=== PATIENT | female | born 1965 | race Caucasian/White ===

== ENCOUNTER 2017-08-11 10:43 | Day surgery (SDC) | payer OTHER ==
[~2017-08-11] VITALS: Ht 162.6 cm; Wt 77.0 kg
[~2017-08-11 10:43] MED LIST: AMLODIPINE BESY10 MG PO; FISH OIL 1,4001 EACH; FLAXSEED1000 MG PO; MULTI VITAMIN1 EACH PO; TENORMIN50 MG PO; TURMERIC500 M2 PO; VITAMIN E400 UNIT PO; XANAX0.25 MG PO; ZESTRIL40 MG PO
--- NOTE | 2017-08-11 12:24 | NUR ---
08/11/17 Mikki4 Britta Cerna 1219-PATIENT ARRIVED TO PACU ON 3L NC O2 SAT 100% PATIENT LAYING PRONE. DRESSING CDI TO BACK. AROUSES TO VERBAL STIMULI SLEEPING.
[2017-08-25] MEDS ORDERED: ACETAMINOPHEN-1 EACH PO (14:16)
== END 2017-08-11 13:25 | disposition home or self-care (01) ==
LOC: OPS 10:43 → DS 10:43 → OPS 12:00 → DS 12:00 → OPS 13:25
PROVIDERS: Specialist
PROC: 079T3ZX Drainage of Bone Marrow, Percutaneous Approach, Diagnostic (ICD-10-PCS; 2017-08-11)
PROC: 07DR3ZX Extraction of Iliac Bone Marrow, Percutaneous Approach, Diagnostic (ICD-10-PCS; principal; 2017-08-11 12:00)
DX: C91.10 Chronic lymphocytic leukemia of B-cell type not having achieved remission (principal); M54.12 Radiculopathy, cervical region; I10 Essential (primary) hypertension; F41.9 Anxiety disorder, unspecified; Z98.890 Other specified postprocedural states; Z88.8 Allergy status to other drugs, medicaments and biological substances
CPT/HCPCS: 80053; 82232; 83615; 85025; 99152; 99153; J2250; J3010; J7120

== ENCOUNTER 2017-08-17 07:43 | Day surgery (SDC) | payer OTHER ==
[~2017-08-17] VITALS: Ht 162.6 cm; Wt 77.0 kg
--- NOTE | 2017-08-17 09:11 | NUR ---
08/17/17 0911 Jazmin Lopez [id number] PT ARRIVED IN PACU SLEEPY. ABD SOFT AND PASSING FLATUS.
--- NOTE | 2017-08-17 09:56 | NUR ---
ICED WATER GIVEN. CALL LIGHT W/IN REACH.
--- NOTE | 2017-08-17 12:15 | NUR ---
PATIENT CALLING HER FRIEND FOR A RIDE. DC INSTRUCTIONS GIVEN. PT DRESSING SELF AFTER SITTING ON THE EDGE OF THE BED WITHOUT ANY ISSUES.
--- NOTE | 2017-08-17 18:17 | OR ---
[facility] [address], [place] [address] Signed DATE OF OPERATION: 08/17/2017 SURGEON: Tam Mathews MD PREOPERATIVE DIAGNOSIS: Screening. POSTOPERATIVE DIAGNOSES: 1. A 10 mm pedunculated polyp at 20 cm. 2. A 5 mm polyps at 1823 hours and 25 cm. 3. Minimal sigmoid diverticulosis. 4. Minimal internal and external hemorrhoids. PROCEDURE: Colonoscopy with snare polypectomy at 20 cm and hot biopsies. ESTIMATED BLOOD LOSS: None. INDICATIONS: Dalia is a 52-year-old female, asked to see me for her initial screening colonoscopy. She has no lower GI complaints. There is no family history of colon cancer or polyps. However, she has been using marijuana and alprazolam on a daily basis. I think mainly for stress and anxiety. Consequently, we had a long discussion regarding Versed and fentanyl versus an anesthesia provider. We also gave her a pamphlet in the office on colonoscopy. We looked at that together. She understands the nature of the test along with its risks including, but not limited to gas, bloating, crampy abdominal pain, bleeding, perforation, requiring surgery, and missed diagnosis. We also reviewed the written instructions for the bowel prep. She had expressed understanding and wished to proceed. PROCEDURE NOTE: Dalia was taken into our endoscopy suite and placed in the left lateral decubitus position. She had taken her citalopram this morning with a sip of water and we still used 13 mg of Versed and 200 mcg of fentanyl for the procedure. She was still awake through much of the procedure. Fortunately, she is fairly easy to pass the colonoscope. Nevertheless, she should consider a propofol infusion on her next colonoscopy. Once she was sedated, a digital rectal exam was performed and she has some small external hemorrhoids. She has good sphincter tone. The adult colonoscope was then introduced and advanced all around into the cecum under direct visualization of camera. Her prep Electronically Signed By: TAM MATHEWS MD 08/17/17 1817 PATIENT NAME: DALIA PRINCE OPERATIVE REPORT DATE OF : 65 REPORT #: [id number] PHYSICIAN: TAM MATHEWS MD PCP: KRYSTAL HOLBROOK REPORT IS CONFIDENTIAL AND NOT TO BE RELEASED WITHOUT AUTHORIZATION [facility] [address], [place] [address] Signed was good. The scope was then slowly withdrawn. She does have sigmoid diverticulosis. They were minimal to moderate in size, minimal to moderate in number, and scattered about. In addition, she had a 10 mm pedunculated polyp at 20 cm. We took it off in 2 bites with our snare and we captured both bites of the polyp and they were sent separately. Also, she had several smaller polyps in the area, which we removed with the help of hot biopsy forceps. Down in the rectum, the scope was then retroflexed and she does have some small internal hemorrhoids. After this, the gas was suctioned out. The colonoscope removed. Dalia tolerated the procedure quite well. RECOMMENDATIONS: I will see Dalia back in my office in 7 to 14 days to review her results. Tam Mathews MD ALB/MODL /[id number] cc: JUVENAL Valentin Copies: KRYSTAL HOLBROOK ~ Electronically Signed By: TAM MATHEWS MD 08/17/17 1817 PATIENT NAME: DALIA PRINCE OPERATIVE REPORT DATE OF : 65 REPORT #: [id number] PHYSICIAN: TAM MATHEWS MD PCP: KRYSTAL HOLBROOK REPORT IS CONFIDENTIAL AND NOT TO BE RELEASED WITHOUT AUTHORIZATION
[2017-08-25] MEDS ORDERED: ACETAMINOPHEN-1 EACH PO (14:16)
== END 2017-08-17 12:25 | disposition home or self-care (01) ==
LOC: DS 07:43 → OPS 07:43 → DS 09:00 → OPS 09:00
PROVIDERS: Colon & Rectal Surgery
PROC: 0DBE8ZX Excision of Large Intestine, Via Natural or Artificial Opening Endoscopic, Diagnostic (ICD-10-PCS; 2017-08-17)
PROC: 0DBE8ZX Excision of Large Intestine, Via Natural or Artificial Opening Endoscopic, Diagnostic (ICD-10-PCS; principal; 2017-08-17 08:30)
DX: Z12.11 Encounter for screening for malignant neoplasm of colon (principal); K63.5 Polyp of colon; K64.4 Residual hemorrhoidal skin tags; K57.30 Diverticulosis of large intestine without perforation or abscess without bleeding; K64.8 Other hemorrhoids; I10 Essential (primary) hypertension; Z98.890 Other specified postprocedural states; Z79.899 Other long term (current) drug therapy
CPT/HCPCS: 99153; G0500; J2250; J3010; J7120